=== PATIENT | male | born 1970 | race Caucasian/White ===

== ENCOUNTER 2024-04-10 09:37 | Emergency (ER) | payer BC, SELFPAY ==
--- NOTE | ~2024-04-10 | US_ITS ---
EXAMINATION: US VENOUS ULTRASOUND WITH DOPPLER LOWER EXTREMITY, LEFT CLINICAL INFORMATION: Left leg swelling COMPARISON: None available. TECHNIQUE: Ultrasound of the deep veins is performed from the hip to the calf with compression sonography and color and pulse Doppler assessment. Spectral analysis with color-flow imaging is performed. FINDINGS: There is normal venous compression and respiratory variation and augmented flow. The visualized common femoral vein, superficial femoral vein, profunda femoral vein, popliteal vein, and the trifurcation region shows no evidence of deep venous thrombosis. Visualization of left posterior tibial and peroneal veins is limited by marked soft tissue edema. There is no significant popliteal fossa cyst. Enlarged left inguinal lymph node with extensive hyperechoic hilum is seen, measuring 1.9 cm in AP diameter, 2.3 cm in width, 4.1 cm in vertical height. If the patient's symptoms persist, followup ultrasound in 5 days 7 days might be of value to exclude proximal propagation from a non-visualized calf vein. US/US venous duplex LE LT IMPRESSION: 1. No DVT demonstrated in the left lower extremity. 2. Enlarged left inguinal lymph node with extensive hyperechoic hilum is seen.
[2024-04-10 09:39] VITALS: BP 169/97; PULSE 70; RESP 18; TEMP 36.5; O2SAT 97; BMI 34.7
[2024-04-10 09:59] LABS: Basophils Absolute Auto 0.1 X10*3/uL (0.0-0.2); Basophils Percent Auto 1.2 % (0-2); Eosinophils Percent Auto 11.1 % (0-4); Hematocrit 47.5 % (42.0-52.0); Hemoglobin 15.7 g/dl (14.0-18.0); Imm Gran Abs Auto 0.14 X10*3/uL (0.00-0.03); Imm Gran Pct Auto 1.5 % (0.0-0.4); Lymphocytes Absolute Auto 1.8 X10*3/uL (1.2-4.9); Lymphocytes Percent Auto 20.1 % (20-40); MANUAL DIFF FLAG NO; Mean Corpuscular HGB Conc 33.1 g/dl (31.0-36.0); Mean Corpuscular Hemoglobin 31.7 pg (27.0-33.0); Mean Corpuscular Volume 95.8 fL (80.0-98.0); Mean Platelet Volume 8.7 fL (9.4-12.4); Monocytes Absolute Auto 0.6 X10*3/uL (0.1-1.2); Monocytes Percent Auto 6.6 % (2-11); Neutrophils Absolute Auto 5.4 x10*3/uL (2.0-8.3); Neutrophils Percent Auto 59.5 % (45-73); Platelet Count 389 X10*3/uL (160-400); Red Blood Count 4.96 X10*6/uL (4.60-5.80); Red Cell Distribution Width 11.9 % (11.0-16.0); White Blood Count 9.2 X10*3/uL (4.8-10.8)
[2024-04-10 10:09] LABS: Lactic Acid 1.1 mmol/L (0.5-2.0)
[2024-04-10 10:21] LABS: Alanine Aminotransferase 17 U/L (0-40); Albumin Level 4.3 g/dL (3.5-5.0); Alkaline Phosphatase 88 U/L (39-117); Anion Gap 11 (12-20); Aspartate Amino Transferase 17 U/L (5-37); Blood Urea Nitrogen 18 mg/dL (9-16); C Reactive Protein 0.94 mg/dL (< or = 0.50); Calcium 9.6 mg/dL (8.4-10.2); Carbon Dioxide 27 mmol/L (22-29); Chloride 105 mmol/L (96-108); Creatinine Clr Calc Pharmacy 118.9; Estimated Glomerular Filt Rate > 60; Glucose Random 119 mg/dL (60-115); Potassium 4.5 mmol/L (3.3-5.1); Sodium 138 mmol/L (135-145); Total Protein 7.9 g/dL (6.5-8.0)
[2024-04-10 10:34] LABS: B Type Natriuretic Peptide 25 pg/mL (<100)
--- NOTE | 2024-04-10 10:53 | PC.NURSE ---
ultrasound being completed at this time.
[2024-04-10 11:03] LABS: Erythrocyte Sedimentation Rate 11 MM/HR (0-15)
--- NOTE | 2024-04-10 12:34 | ED.GENADULT ---
HPI - General Adult General Chief complaint: Extremity Injury, Lower Stated complaint: Swelling L foot and ankle Time Seen by Provider: 04/10/24 09:48 Source: patient and RN notes reviewed Mode of arrival: ambulatory Limitations: no limitations History of Present Illness ED Provider: Michelle Ma PA-C HPI narrative: This is a 54-year-old male, with no known medical problems, who presents emergency department with complaints of left lower leg swelling x1 year, worsening over the last several weeks. Patient states that he noticed 1 year ago he had increased swelling to his left lower extremity. He states that over the last 2-3 weeks he has had increased redness to his lower extremity. He reports associated pain. He denies being medically seen for this problem. He denies any fevers, chills, chest pain, shortness of breath, abdominal pain, nausea, vomiting or diarrhea. No other complaints or concerns at this time. MD complaint: Left leg swelling Onset (ago): day(s) Radiation: non-radiation Severity: moderate Quality: aching Pain Consistency: constant Relieving factors: none Exacerbating factors: movement Associated symptoms: denies other symptoms Treatments prior to arrival: none Related Data Previous Rx's ?Medication ?Instructions ?Recorded cephalexin 500 mg capsule 500 mg PO QID 7 days #28 caps 04/10/24 doxycycline hyclate 100 mg capsule 100 mg PO BID 7 days #14 caps 04/10/24 furosemide 20 mg tablet (Lasix) 20 mg PO DAILY 7 days #7 tabs 04/10/24 Allergies Allergy/AdvReac Type Severity Reaction Status Date / Time No Known Allergies Allergy Verified 04/10/24 09:45 Review of Systems Review of Systems: Yes all other systems are reviewed and are negative Constitutional: Constitutional: Reports as per HPI Physical Exam ED Vital Signs: Vital Signs - 24 hr 04/10/24 09:39 04/10/24 13:03 04/10/24 13:05 Temperature 97.7 F 97.7 F 97.7 F Pulse Rate 70 70 70 Respiratory Rate 18 18 18 Blood Pressure 169/97 H 169/97 H 169/97 H Pulse Oximetry 97 97 97 Oxygen Delivery Method Room Air Room Air Room Air BMI result Body Mass Index 34.7 Const General: cooperative, comfortable and no acute distress Orientation/consciousness: patient oriented x3 Limitations: no limitations HENMT Head: Yes normal to inspection, Yes normocephalic and Yes atraumatic Ears: hearing grossly normal bilaterally General nose exam: Normal external nose present Face and sinus: Yes normal facial exam Mouth: Normal oral and palatal mucosa present, oropharynx normal and moist mucous membranes Throat: Yes posterior oropharynx normal Eyes General: appearance normal, both eyes and all related structures Eyelids: Yes eyelids normal Conjunctivae: conjunctivae normal Sclerae: sclerae normal Pupils: Equal, round and reactive pupils present EOM: EOMs intact bilaterally Neck Neck: Yes normal visual inspection, Yes full ROM and Yes no lymphadenopathy Lymphatic: no lymphadenopathy noted Chest Chest palpation & inspection: normal inspection of the chest Resp Effort & Inspection: normal respiratory effort and able to speak in complete sentences Auscultation: clear to auscultation bilaterally, no crackles, no rales, no rhonchi and no wheezes Cardio Rate: regular rate Rhythm: regular rhythm Heart sounds: S1 normal heart sound present and S2 normal heart sound present GI Inspection: Yes normal to inspection Skin General skin exam: no rashes or lesions noted Trauma: no lacerations or abrasions Wounds: no wounds Neuro General: patient oriented x3 and moves all extremities Cranial nerves: Yes Equal, round and reactive pupils present Extrem Other: Left lower leg with chronic venous stasis changes with overlying erythema and warmth, there is a 3 cm round chronic venous stasis wound to the medial aspect of the left medial malleolus. 2 +pitting edema noted. Palpable DP pulses. Full range of motion with dorsi and plantar flexion. Distal sensation circulation intact. General: Yes normal to inspection Right upper extremity: normal to inspection Left upper extremity: normal to inspection Right lower extremity: normal to inspection Left lower extremity: normal to inspection Medical Decision Making Medical Decision Making MDM Narrative: This is a 54-year-old male who presents emergency department with complaints of ongoing left leg swelling x1 year, worsening over the last several weeks. On arrival, patient hypertensive at 169/97, all other vital signs within normal limits. Patient has obvious 2+ pitting edema noted to the left lower extremity with erythema noted. Given presentation, labs, ultrasound was ordered. Patient has no leukocytosis, stable H&H, BNP within normal limits. Slight elevation in CRP. Ultrasound was also ordered. Patient was seen and evaluated by my attending physician, Dr. Brooks. Discussed overall workup with patient with attending physician, and shared decision making was made with patient. He would not like to be admitted at this time, we will trial p.o. antibiotics and 1 week of Lasix. Given vascular follow-up as well as [facility] for follow-up. Discussed return precautions. Patient understands and agrees with plan. Patient stable for discharge. Differential Diagnosis Differential Diagnoses: The differential diagnosis associated with the presentation includes Admission/Observation Consideration of admission/observation: Escalation of care including admission/observation considered Lab Data MDM Lab Attestation statement: I reviewed the patient's lab results. No leukocytosis, stable H&H ESR within normal limits CRP slightly elevated. BNP negative 04/10/24 09:55 04/10/24 09:50 Labs: Lab Results 04/10/24 04/10/24 Range/Units 09:50 09:55 WBC 9.2 (4.8-10.8) X10*3/uL RBC 4.96 (4.60-5.80) X10*6/uL Hgb 15.7 (14.0-18.0) g/dl Hct 47.5 (42.0-52.0) % MCV 95.8 (80.0-98.0) fL MCH 31.7 (27.0-33.0) pg MCHC 33.1 (31.0-36.0) g/dl RDW 11.9 (11.0-16.0) % Plt Count 389 (160-400) X10*3/uL MPV 8.7 L (9.4-12.4) fL Immature Gran % (Auto) 1.5 H (0.0-0.4) % Neut % (Auto) 59.5 (45-73) % Lymph % (Auto) 20.1 (20-40) % [place] % (Auto) 6.6 (2-11) % Eos % (Auto) 11.1 H (0-4) % Baso % (Auto) 1.2 (0-2) % Lymph # (Auto) 1.8 (1.2-4.9) X10*3/uL [place] # (Auto) 0.6 (0.1-1.2) X10*3/uL Eos # (Auto) 1.0 H (0.0-0.4) X10*3/uL Baso # (Auto) 0.1 (0.0-0.2) X10*3/uL Abs Immat Gran (auto) 0.14 H (0.00-0.03) X10*3/uL Absolute Neuts (auto) 5.4 (2.0-8.3) x10*3/uL Absolute Nucleated RBC 0.000 (0.0-0.012) X10*3/uL Nucleated RBC % (auto) 0.0 (0.0-0.2) /100WBC ESR 11 (0-15) MM/HR Sodium 138 (135-145) mmol/L Potassium 4.5 (3.3-5.1) mmol/L Chloride 105 (96-108) mmol/L Carbon Dioxide 27 (22-29) mmol/L Anion Gap 11 L (12-20) BUN 18 H (9-16) mg/dL Creatinine 0.88 (0.5-1.4) mg/dL Estim Creat Clear Calc 118.9 Estimated GFR > 60 Random Glucose 119 H (60-115) mg/dL Lactic Acid 1.1 (0.5-2.0) mmol/L Calcium 9.6 (8.4-10.2) mg/dL Total Bilirubin 1.0 (0.0-1.0) mg/dL AST 17 (5-37) U/L ALT 17 (0-40) U/L Alkaline Phosphatase 88 (39-117) U/L C-Reactive Protein 0.94 H (< or = 0.50) mg/dL B-Natriuretic Peptide 25 (<100) pg/mL Total Protein 7.9 (6.5-8.0) g/dL Albumin 4.3 (3.5-5.0) g/dL Radiology Impression Discussion of test interpretation with radiology: I have reviewed the radiologist's reading. Radiologist Impression: US/US venous duplex LE LT IMPRESSION: 1. No DVT demonstrated in the left lower extremity. 2. Enlarged left inguinal lymph node with extensive hyperechoic hilum is seen. Dictated By: Neeraj Gonzalez Independent Historian Clinical information obtained from an independent historian. History obtained from or confirmed by: Spouse Discharge Plan Discharge Clinical Impression: Cellulitis, Lymphedema Patient Disposition: Home, Self-Care Instructions: Cellulitis (ED), Lymphedema (ED) Additional Instructions: You were seen in the emergency department due to left leg swelling and redness. You do have evidence of a condition called lymphedema, you also have a skin infection. Please take prescribed antibiotic as directed. Finish the entire course even if your symptoms improve. You may use Justin wraps to your legs to help with the swelling. You need to follow-up with a primary care physician as well as a vascular surgeon. This is very important. If any new or worsening symptoms occur including limited to worsening redness, swelling, fevers, please report to the emergency room. Prescriptions: New doxycycline hyclate 100 mg capsule 100 mg PO BID 7 Days Qty: 14 0RF cephalexin 500 mg capsule 500 mg PO QID 7 Days Qty: 28 0RF furosemide [Lasix] 20 mg tablet 20 mg PO DAILY 7 Days Qty: 7 0RF Stand Alone Forms: Work/School Release Interventions: ED Discharge Assessment Last Done: 04/10/24 13:05 Discharge Date/Time: 04/10/24 13:06 Print Language: Kyrgyz
[2024-04-10 13:03] VITALS: BP 169/97; PULSE 70; RESP 18; TEMP 36.5; O2SAT 97
[2024-04-10 13:05] VITALS: BP 169/97; PULSE 70; RESP 18; TEMP 36.5; O2SAT 97
== END 2024-04-10 13:06 | disposition home or self-care (01) ==
PROVIDERS: Physician Assistant Medical; Emergency Provider Emergency Medicine
DX: L03.116 Cellulitis of left lower limb (principal); R60.0 Localized edema; I89.0 Lymphedema, not elsewhere classified; R06.02 Shortness of breath; Z79.899 Other long term (current) drug therapy
CPT/HCPCS: 36415; 80053; 83605; 83880; 85025; 85652; 86140; 93971; 99282; 99284

== ENCOUNTER 2024-04-20 12:41 | Outpatient (RCR) | payer BC, SELFPAY | END 2024-05-26 09:55 | disposition home or self-care (01) | LOC: HO.WCC 12:41 | PROVIDERS: PCP Family Medicine; Visit Provider Surgery | DX: Z09 Encounter for follow-up examination after completed treatment for conditions other than malignant neoplasm (principal); I87.322 Chronic venous hypertension (idiopathic) with inflammation of left lower extremity; I73.9 Peripheral vascular disease, unspecified; Z87.891 Personal history of nicotine dependence | CPT/HCPCS: 99213 ==